=== PATIENT | female | born 1985 | race Two or more races ===

== ENCOUNTER 2017-09-30 15:21 | Outpatient (CLI) | payer MEDICAID | END 2017-09-30 16:56 | disposition home or self-care (01) | LOC: LDOP 15:21 | PROVIDERS: ATTEND Obstetrics & Gynecology | DX: O26.899 Other specified pregnancy related conditions, unspecified trimester (principal); R10.9 Unspecified abdominal pain; Z3A.00 Weeks of gestation of pregnancy not specified | CPT/HCPCS: 59025; 81001; 87086; 99201; G0463 ==

== ENCOUNTER 2017-12-25 13:02 | Emergency (ER) | payer MEDICAID ==
[~2017-12-25] VITALS: Ht 157.5 cm; Wt 102.3 kg
[2017-12-25 13:08] VITALS: BP 107/63
[2017-12-25] MEDS ORDERED: LIDOCAINE 2%, 20ML SQ ONE (14:00)
== END 2017-12-25 14:35 | disposition home or self-care (01) ==
LOC: ED 14:20
DX: O99.713 Diseases of the skin and subcutaneous tissue complicating pregnancy, third trimester (principal); L02.411 Cutaneous abscess of right axilla; Z3A.34 34 weeks gestation of pregnancy
CPT/HCPCS: 10061; 99284

== ENCOUNTER 2017-12-27 15:56 | Emergency (ER) | payer MEDICAID ==
[~2017-12-27] VITALS: Ht 157.5 cm; Wt 102.2 kg
[2017-12-27 16:09] VITALS: BP 118/75
== END 2017-12-27 17:23 | disposition home or self-care (01) ==
LOC: ED 17:15
DX: O26.893 Other specified pregnancy related conditions, third trimester (principal); O99.713 Diseases of the skin and subcutaneous tissue complicating pregnancy, third trimester; Z48.817 Encounter for surgical aftercare following surgery on the skin and subcutaneous tissue; Z3A.32 32 weeks gestation of pregnancy
CPT/HCPCS: 99281

== ENCOUNTER 2018-01-09 15:58 | Outpatient (CLI) | payer MEDICAID ==
[~2018-01-09] VITALS: Ht 157.5 cm; Wt 100.0 kg
[2018-01-09 16:39] LABS: MICROSCOPIC INDICATED
[2018-01-09 17:03] LABS: BASOPHILS # (AUTO) 0.02 x10^3/uL (0-0.1); BASOPHILS % (AUTO) 0 % (0-1); EOSINOPHILS % (AUTO) 1 % (1-7); LYMPHOCYTES % (AUTO) 14 % (22-44); MD NO; MEAN CORPUSCULAR HEMOGLOBIN 27.1 pg (27.0-34.8); MEAN CORPUSCULAR HGB CONC 32.5 g/dL (32.4-35.8); MEAN CORPUSCULAR VOLUME 83.2 fL (80-100); MEAN PLATELET VOLUME 10.5 fL (7.4-10.4); MONOCYTES # (AUTO) 0.78 x10^3/uL (0.2-0.8); MONOCYTES % (AUTO) 7 % (2-9); NEUTROPHILS # (AUTO) 9.37 x10^3/uL (1.8-6.8); NEUTROPHILS % (AUTO) 79 % (42-75); PLATELET COUNT 235 x10^3/uL (130-400); RED BLOOD COUNT 4.26 x10^6/uL (3.82-5.3); RED CELL DISTRIBUTION WIDTH 14.3 % (9.6-15.2)
[2018-01-09 17:13] LABS: ALANINE AMINOTRANSFERASE 47 U/L (12-78); ALBUMIN 2.4 g/dL (3.4-5.0); ANION GAP 9 mmol/L (5-15); BILIRUBIN, DIRECT 0.1 mg/dL (0.1-0.2); CALCIUM 8.4 mg/dL (8.5-10.1); CHLORIDE 107 mmol/L (98-107); CREATININE 0.64 mg/dL (0.55-1.02)
[2018-01-09 17:15] LABS: ALKALINE PHOSPHATASE 134 U/L (45-117); BILIRUBIN,TOTAL 0.3 mg/dL (0.2-1.0); TOTAL PROTEIN 6.4 g/dL (6.4-8.2)
[2018-01-09 17:50] VITALS: BP 116/67
== END 2018-01-09 17:50 | disposition home or self-care (01) ==
LOC: LDOP 15:58
PROVIDERS: ATTEND Obstetrics & Gynecology
DX: O26.893 Other specified pregnancy related conditions, third trimester (principal); R10.9 Unspecified abdominal pain; R19.00 Intra-abdominal and pelvic swelling, mass and lump, unspecified site; Z3A.36 36 weeks gestation of pregnancy
CPT/HCPCS: 36415; 59025; 80053; 81001; 82248; 84550; 85025; 87086; 99211; G0463

== ENCOUNTER 2018-01-19 06:30 | Inpatient (IN) | payer MEDICAID ==
[~2018-01-19] VITALS: Ht 165.1 cm; Wt 92.0 kg
[2018-01-19 07:25] VITALS: BP 125/73
[2018-01-19] MEDS ORDERED: CALCIUM CARBONATE 500 MG TAB.CHEW ONE (09:44)
[2018-01-19] MEDS ORDERED: CALCIUM CARBONATE 500 MG TAB.CHEW PO PRN ×2 (10:00→13:30)
[2018-01-19 11:22] LABS: BASOPHILS # (AUTO) 0.01 x10^3/uL (0-0.1); BASOPHILS % (AUTO) 0 % (0-1); EOSINOPHILS # (AUTO) 0.05 x10^3/uL (0-0.4); EOSINOPHILS % (AUTO) 0 % (1-7); LYMPHOCYTES # (AUTO) 0.59 x10^3/uL (1-3.4); LYMPHOCYTES % (AUTO) 5 % (22-44); MD NO; MEAN CORPUSCULAR HEMOGLOBIN 26.1 pg (27.0-34.8); MEAN CORPUSCULAR HGB CONC 32.3 g/dL (32.4-35.8); MEAN CORPUSCULAR VOLUME 80.8 fL (80-100); MEAN PLATELET VOLUME 10.3 fL (7.4-10.4); MONOCYTES # (AUTO) 0.53 x10^3/uL (0.2-0.8); MONOCYTES % (AUTO) 5 % (2-9); NEUTROPHILS # (AUTO) 10.73 x10^3/uL (1.8-6.8); NEUTROPHILS % (AUTO) 90 % (42-75); PLATELET COUNT 235 x10^3/uL (130-400); RED BLOOD COUNT 4.74 x10^6/uL (3.82-5.3); RED CELL DISTRIBUTION WIDTH 14.5 % (9.6-15.2)
[2018-01-19 11:31] LABS: ANION GAP 9 mmol/L (5-15); CALCIUM 8.5 mg/dL (8.5-10.1); CHLORIDE 105 mmol/L (98-107); CREATININE 0.61 mg/dL (0.55-1.02)
[2018-01-19 11:32] LABS: ALANINE AMINOTRANSFERASE 61 U/L (12-78); ALBUMIN 2.5 g/dL (3.4-5.0); BILIRUBIN, DIRECT 0.2 mg/dL (0.1-0.2)
[2018-01-19 11:34] LABS: ALKALINE PHOSPHATASE 161 U/L (45-117); BILIRUBIN,TOTAL 0.8 mg/dL (0.2-1.0); TOTAL PROTEIN 6.9 g/dL (6.4-8.2)
[2018-01-19] MEDS ORDERED: PROMETHAZINE 25 MG/ML, 1ML ONE (12:29)
[2018-01-19] MEDS ORDERED: PROMETHAZINE 25 MG/ML, 1ML IM ONE (13:00)
[2018-01-19] MEDS ORDERED: ONDANSETRON 2MG/ML, 2ML ONE (13:18)
[2018-01-19] MEDS ORDERED: NEWBORN KIT ONE (13:18)
[2018-01-19] MEDS ORDERED: OXYTOCIN 30U/ 0.9% NaCL 500ML 500 ML ONE (13:18)
[2018-01-19] MEDS ORDERED: D5%-LACTATED RINGERS 1,000 ML IV SCH (13:20)
[2018-01-19] MEDS ORDERED: OXYTOCIN 30U/ 0.9% NaCL 500ML 500 ML IV PRN (13:20)
[2018-01-19] MEDS ORDERED: OXYTOCIN 30U/ 0.9% NaCL 500ML 500 ML IV ONE (13:20)
[2018-01-19 13:25] LABS: AMPHETAMINE SCREEN, URINE Negative (Negative); BARBITURATE SCREEN, URINE Negative (Negative); CANNABINOID SCREEN, URINE Negative (Negative); COCAINE SCREEN, URINE Negative (Negative); METHADONE SCREEN, URINE Negative (Negative); OPIATE SCREEN, URINE Negative (Negative)
[2018-01-19 13:26] LABS: BENZODIAZEPINE SCREEN, URINE Negative (Negative)
[2018-01-19] MEDS: LACTATED RINGERS 1,000 ML IV SCH ×2 (13:29→17:57)
[2018-01-19] MEDS ORDERED: PENICILLIN GK 5,000,000 UNITS in SODIUM CHLORIDE 0.9% 100 ML IVPB ONE (13:30)
[2018-01-19] MEDS ORDERED: ALUMINUM/MAG/SIMETHICONE 30 ML UDC PO PRN (13:30)
[2018-01-19] MEDS ORDERED: ONDANSETRON 2MG/ML, 2ML IVPush PRN (13:30)
[2018-01-19] MEDS ORDERED: FENTANYL PF 100 MCG/2ML IVPush PRN (13:30)
[2018-01-19] MEDS ORDERED: SODIUM CITRATE/CITRIC ACID 30 ML UDC PO PRN (13:30)
[2018-01-19] MEDS ORDERED: ALUMINUM/MAG/SIMETHICONE 30 ML UDC ONE (17:51)
[2018-01-19] MEDS ORDERED: SODIUM CITRATE/CITRIC ACID 30 ML UDC ONE (19:58)
[2018-01-20] MEDS ORDERED: MISOPROSTOL 25 MCG TABLET ONE ×2 (00:24→05:05)
[2018-01-20] MEDS ORDERED: MISOPROSTOL 25 MCG TABLET VG PRN (00:30)
[2018-01-20] MEDS ORDERED: MAALOX/HYOSCYAMINE/LIDOCAINE 45 ML BTL PO ONE (00:30)
[2018-01-20] MEDS: PENICILLIN GK 2,500,000 UNITS in DEXTROSE 5% 100 ML IVPB SCH ×2 (00:48→05:45)
[2018-01-20] MEDS: LACTATED RINGERS 1,000 ML IV SCH (03:21)
[2018-01-20 05:28] LABS: CULTURE INDICATED? YES; MICROSCOPIC INDICATED
== END 2018-01-20 12:19 | disposition home or self-care (01) | DRG 781 ==
LOC: LDOP 06:30 → LDIP 10:27 → OBSVTOIN 13:20
PROVIDERS: ADMIT Obstetrics & Gynecology; ATTEND Obstetrics & Gynecology
DX: O99.820 Streptococcus B carrier state complicating pregnancy (principal); O76 Abnormality in fetal heart rate and rhythm complicating labor and delivery; Z3A.37 37 weeks gestation of pregnancy
CPT/HCPCS: 36415; 80053; 80307; 81001; 82248; 84550; 85025; 87077; 87086; 87186; 87806; G0378; J2405; J2540; G0475; J2590; J7120; J7121

== ENCOUNTER 2018-02-12 08:18 | Inpatient (IN) | payer MEDICAID ==
[~2018-02-12] VITALS: Ht 157.5 cm; Wt 101.3 kg
[2018-02-12 08:37] LABS: BASOPHILS # (AUTO) 0.03 x10^3/uL (0-0.1); BASOPHILS % (AUTO) 0 % (0-1); EOSINOPHILS # (AUTO) 0.14 x10^3/uL (0-0.4); EOSINOPHILS % (AUTO) 2 % (1-7); LYMPHOCYTES # (AUTO) 1.69 x10^3/uL (1-3.4); LYMPHOCYTES % (AUTO) 20 % (22-44); MD NO; MEAN CORPUSCULAR HEMOGLOBIN 25.3 pg (27.0-34.8); MEAN CORPUSCULAR VOLUME 78.8 fL (80-100); MONOCYTES # (AUTO) 0.69 x10^3/uL (0.2-0.8); MONOCYTES % (AUTO) 8 % (2-9); NEUTROPHILS # (AUTO) 6.07 x10^3/uL (1.8-6.8); NEUTROPHILS % (AUTO) 70 % (42-75); PLATELET COUNT 208 x10^3/uL (130-400); RED CELL DISTRIBUTION WIDTH 15.8 % (9.6-15.2)
[2018-02-12 08:49] LABS: ALANINE AMINOTRANSFERASE 22 U/L (12-78); ALBUMIN 2.4 g/dL (3.4-5.0); ANION GAP 8 mmol/L (5-15); BILIRUBIN, DIRECT 0.1 mg/dL (0.1-0.2); CALCIUM 8.4 mg/dL (8.5-10.1); CHLORIDE 110 mmol/L (98-107)
[2018-02-12 08:51] LABS: MICROSCOPIC INDICATED
[2018-02-12 08:51] LABS: ALKALINE PHOSPHATASE 163 U/L (45-117); BILIRUBIN,TOTAL 0.4 mg/dL (0.2-1.0); CREATININE 0.61 mg/dL (0.55-1.02); TOTAL PROTEIN 6.2 g/dL (6.4-8.2)
[2018-02-12] MEDS ORDERED: MISOPROSTOL 25 MCG TABLET ONE (08:59)
[2018-02-12] MEDS ORDERED: MISOPROSTOL 25 MCG TABLET VG PRN (09:00)
[2018-02-12] MEDS ORDERED: PENICILLIN GK 5,000,000 UNITS in SODIUM CHLORIDE 0.9% 100 ML IVPB ONE (09:00)
[2018-02-12] MEDS ORDERED: OXYTOCIN 30U/ 0.9% NaCL 500ML 500 ML IV ONE (09:00)
[2018-02-12] MEDS: LACTATED RINGERS 1,000 ML IV SCH ×2 (09:15→18:00)
[2018-02-12 09:24] LABS: CREATININE,URINE RANDOM 95.2 mg/dL
[2018-02-12] MEDS ORDERED: OXYTOCIN 30U/ 0.9% NaCL 500ML 500 ML ONE (09:47)
[2018-02-12] MEDS ORDERED: NEWBORN KIT ONE (09:47)
[2018-02-12] MEDS ORDERED: D5%-LACTATED RINGERS 1,000 ML IV SCH (10:00)
[2018-02-12] MEDS ORDERED: FENTANYL PF 100 MCG/2ML ONE ×2 (13:04→19:07)
[2018-02-12] MEDS: FENTANYL PF 100 MCG/2ML IVPush PRN ×2 (13:07→19:12)
[2018-02-12] MEDS: PENICILLIN GK 2,500,000 UNITS in DEXTROSE 5% 100 ML IVPB SCH ×3 (13:46→21:49)
[2018-02-12] MEDS ORDERED: FENTANYL PF 100 MCG/2ML IV PRN (14:00)
[2018-02-12 19:34] VITALS: BP 133/72
[2018-02-12] MEDS ORDERED: BUPIVACAINE 0.25% ONE (20:30)
[2018-02-12] MEDS ORDERED: FENTANYL/BUPIV./NS/PF 250 ML EPIDCONT ONE (20:30)
[2018-02-12] MEDS ORDERED: LACTATED RINGERS 1,000 ML IV SCH (20:56)
[2018-02-12] MEDS ORDERED: FENTANYL/BUPIV./NS/PF 250 ML EPIDCONT SCH (20:56)
[2018-02-12] MEDS ORDERED: LACTATED RINGERS 1,000 ML IVBOLUS PRN (21:00)
[2018-02-12] MEDS ORDERED: EPHEDRINE 50 MG/ML, 1ML IVPush PRN (21:00)
[2018-02-13] MEDS: PENICILLIN GK 2,500,000 UNITS in DEXTROSE 5% 100 ML IVPB SCH (02:04)
[2018-02-13] MEDS: LACTATED RINGERS 1,000 ML IV SCH (02:07)
[2018-02-13] MEDS ORDERED: CALCIUM CARBONATE 500 MG TAB.CHEW ONE (03:07)
[2018-02-13] MEDS ORDERED: ONDANSETRON 2MG/ML, 2ML ONE (03:39)
[2018-02-13] MEDS ORDERED: MISOPROSTOL 200 MCG TABLET ONE (04:14)
[2018-02-13] MEDS: OXYTOCIN 30U/ 0.9% NaCL 500ML 500 ML IV SCH ×2 (04:28→14:58)
[2018-02-13] MEDS ORDERED: DIPH,PERTUSS(ACELL),TET VAC/PF NC IM-VACC PRN (04:30)
[2018-02-13] MEDS ORDERED: MEASLES,MUMPS&RUBELLA VACC/PF 0.5 ML SQ PRN (04:30)
[2018-02-13] MEDS ORDERED: CALCIUM CARBONATE 500 MG TAB.CHEW PO PRN (04:30)
[2018-02-13] MEDS ORDERED: BISACODYL 10 MG SUPP PR PRN (04:30)
[2018-02-13] MEDS ORDERED: GLYCERIN ADULT SUPP PR PRN (04:30)
[2018-02-13] MEDS ORDERED: OXYcodone/APAP 5/325MG TABLET PO PRN (04:30)
[2018-02-13] MEDS ORDERED: MISOPROSTOL 200 MCG TABLET PR PRN (04:30)
[2018-02-13] MEDS ORDERED: CARBOPROST TROMETHAMINE 250 MCG/ML, 1ML IM PRN (04:30)
[2018-02-13] MEDS ORDERED: METHYLERGONOVINE 0.2 MG/ML IM PRN (04:30)
[2018-02-13] MEDS ORDERED: ACETAMINOPHEN 325 MG TABLET PO PRN ×2 (04:30)
[2018-02-13] MEDS ORDERED: MAGNESIUM HYDROXIDE 8%, 30ML UDC PO PRN (04:30)
[2018-02-13] MEDS ORDERED: ACETAMINOPHEN 325 MG TABLET ONE (04:38)
[2018-02-13] MEDS ORDERED: ONDANSETRON 2MG/ML, 2ML IVPush PRN (05:30)
[2018-02-13] MEDS ORDERED: IBUPROFEN 600 MG TABLET ONE (07:35)
[2018-02-13] MEDS ORDERED: OXYcodone/APAP 5/325MG TABLET ONE (07:36)
[2018-02-13] MEDS: IBUPROFEN 600 MG TABLET PO PRN ×2 (07:39→17:22)
[2018-02-13] MEDS: OXYcodone/APAP 5/325MG TABLET PO PRN ×2 (07:40→20:23)
[2018-02-13 08:35] VITALS: BP 114/75
[2018-02-13] MEDS: PRENATAL VIT/IRON/FA 1 EACH TABLET PO SCH (11:33)
[2018-02-13 12:01] VITALS: BP 124/82
[2018-02-13 12:20] LABS: MEAN CORPUSCULAR HEMOGLOBIN 25.8 pg (27.0-34.8); MEAN CORPUSCULAR HGB CONC 32.9 g/dL (32.4-35.8); MEAN CORPUSCULAR VOLUME 78.6 fL (80-100); MEAN PLATELET VOLUME 11.2 fL (7.4-10.4); PLATELET COUNT 184 x10^3/uL (130-400); RED BLOOD COUNT 4.03 x10^6/uL (3.82-5.3); RED CELL DISTRIBUTION WIDTH 16.1 % (9.6-15.2)
[2018-02-13 12:37] LABS: BASOPHILS # (AUTO) 0.02 x10^3/uL (0-0.1); BASOPHILS % (AUTO) 0 % (0-1); EOSINOPHILS # (AUTO) 0.06 x10^3/uL (0-0.4); EOSINOPHILS % (AUTO) 0 % (1-7); LYMPHOCYTES # (AUTO) 1.34 x10^3/uL (1-3.4); LYMPHOCYTES % (AUTO) 8 % (22-44); MD SCAN; MONOCYTES # (AUTO) 1.12 x10^3/uL (0.2-0.8); MONOCYTES % (AUTO) 7 % (2-9); NEUTROPHILS # (AUTO) 14.82 x10^3/uL (1.8-6.8); NEUTROPHILS % (AUTO) 85 % (42-75)
[2018-02-13 16:13] VITALS: BP 120/79
[2018-02-13 20:00] VITALS: BP 139/76
[2018-02-13] MEDS: DOCUSATE 100 MG CAPSULE PO PRN (20:23)
[2018-02-14 00:20] VITALS: BP 124/77
[2018-02-14] MEDS: IBUPROFEN 600 MG TABLET PO PRN ×3 (00:27→16:02)
[2018-02-14] MEDS: OXYTOCIN 30U/ 0.9% NaCL 500ML 500 ML IV SCH ×2 (00:28→09:16)
[2018-02-14 05:00] VITALS: BP 143/85
[2018-02-14] MEDS: OXYcodone/APAP 5/325MG TABLET PO PRN (05:49)
[2018-02-14 07:30] VITALS: BP 129/83
[2018-02-14] MEDS: DOCUSATE 100 MG CAPSULE PO PRN (09:00)
[2018-02-14] MEDS: PRENATAL VIT/IRON/FA 1 EACH TABLET PO SCH (09:00)
[2018-02-14] MEDS ORDERED: IBUP-1222 PO (12:43)
== END 2018-02-14 18:35 | disposition home or self-care (01) | DRG 775 ==
LOC: LDIP 08:18 → 2NW 02-13 08:15
PROVIDERS: ADMIT Obstetrics & Gynecology; ATTEND Obstetrics & Gynecology
PROC: 10E0XZZ Delivery of Products of Conception, External Approach (ICD-10-PCS; principal; 2018-02-13)
PROC: 3E0R3BZ Introduction of Anesthetic Agent into Spinal Canal, Percutaneous Approach (ICD-10-PCS; 2018-02-13)
PROC: 00HU33Z Insertion of Infusion Device into Spinal Canal, Percutaneous Approach (ICD-10-PCS; 2018-02-13)
DX: O48.0 Post-term pregnancy (principal); O69.81X0 Labor and delivery complicated by cord around neck, without compression, not applicable or unspecified; Z37.0 Single live birth; O77.0 Labor and delivery complicated by meconium in amniotic fluid; O99.824 Streptococcus B carrier state complicating childbirth; Z3A.41 41 weeks gestation of pregnancy; Z23 Encounter for immunization
CPT/HCPCS: 36415; 80053; 81001; 82248; 82570; 84156; 84550; 85025; 86850; 86900; J2405; J2540; J3010; J2590; J7120

== ENCOUNTER 2018-08-29 10:26 | Emergency (ER) | payer MEDICAID ==
[~2018-08-29] VITALS: Ht 167.6 cm; Wt 98.2 kg
[~2018-08-29 10:26] MED LIST: IBUP-1222 PO
[2018-08-29 10:39] VITALS: BP 143/75
[2018-08-29] MEDS ORDERED: LIDOCAINE-MPF 1%, 5ML ONE (10:54)
== END 2018-08-29 11:44 | disposition home or self-care (01) ==
LOC: ED 11:38
DX: L02.411 Cutaneous abscess of right axilla (principal)
CPT/HCPCS: 10060; 99283

== ENCOUNTER 2018-08-31 17:15 | Emergency (ER) | payer MEDICAID ==
[~2018-08-31] VITALS: Ht 157.5 cm; Wt 100.0 kg
[2018-08-31 17:22] VITALS: BP 131/75
== END 2018-08-31 18:04 | disposition home or self-care (01) ==
LOC: ED 17:58
DX: L02.411 Cutaneous abscess of right axilla (principal)
CPT/HCPCS: 10060; 99283

== ENCOUNTER 2018-09-02 09:36 | Emergency (ER) | payer MEDICAID ==
[~2018-09-02] VITALS: Ht 157.5 cm; Wt 99.4 kg
[2018-09-02 09:39] VITALS: BP 130/79
== END 2018-09-02 10:26 | disposition home or self-care (01) ==
LOC: ED 10:04
DX: L02.411 Cutaneous abscess of right axilla (principal)
CPT/HCPCS: 99282; 99283

== ENCOUNTER 2018-10-20 19:25 | Emergency (ER) | payer MEDICAID ==
[~2018-10-20] VITALS: Ht 157.5 cm; Wt 100.0 kg
[2018-10-20 19:30] VITALS: BP 131/74
== END 2018-10-20 20:33 | disposition home or self-care (01) ==
LOC: ED 20:05
DX: L02.411 Cutaneous abscess of right axilla (principal)
CPT/HCPCS: 99283

== ENCOUNTER 2018-10-27 03:16 | Emergency (ER) | payer MEDICAID ==
[~2018-10-27] VITALS: Ht 157.5 cm; Wt 99.7 kg
[2018-10-27] MEDS ORDERED: IBUPROFEN 200 MG TABLET ONE (03:59)
[2018-10-27] MEDS ORDERED: IBUPROFEN 200 MG TABLET PO ONE (04:00)
[2018-10-27 04:46] LABS: RAPID INFLUENZA A Negative (Negative); RAPID INFLUENZA B Negative (Negative)
[2018-10-27 05:10] VITALS: BP 118/73
== END 2018-10-27 05:12 | disposition home or self-care (01) ==
LOC: ED 03:38
DX: R05 Cough (principal); R50.9 Fever, unspecified; H92.03 Otalgia, bilateral
CPT/HCPCS: 71046; 87400; 93005; 99284

== ENCOUNTER 2020-07-06 22:02 | Emergency (ER) | payer MEDICAID ==
[~2020-07-06] VITALS: Ht 157.5 cm; Wt 106.0 kg
[2020-07-06] MEDS ORDERED: DIPHENHYDRAMINE 25 MG CAPSULE ONE (23:56)
[2020-07-07] MEDS ORDERED: DIPHENHYDRAMINE 25 MG CAPSULE PO ONE
[2020-07-07 00:43] VITALS: BP 130/65
--- NOTE | 2020-07-07 00:44 | NUR ---
PT STATED "SHE FEELS BETTER AND WANTS TO GO HOME"
== END 2020-07-07 01:26 | disposition home or self-care (01) ==
LOC: ED 07-07 01:10
DX: L50.0 Allergic urticaria (principal); Z98.51 Tubal ligation status
CPT/HCPCS: 99283; J7512; Q0163